=== PATIENT | male | born 1970 | race Caucasian/White ===

== ENCOUNTER 2021-05-29 13:04 | Emergency (ER) | payer BC ==
[2021-05-29] MEDS ORDERED: Sodium Chloride 0.9% 10 ML Syringe FLUSH PRN ×2 (13:53→14:22)
[2021-05-29] MEDS ORDERED: Iopamidol 755 Mg/ML 100 ML Bottle IVPUSH ONE (14:22)
[2021-05-29] MEDS ORDERED: Diatrizoate Meglumine/Diatrizoate Sodium 37% 120 ML Bottle PO ONE (14:27)
[2021-05-29] MEDS ORDERED: Sodium Chloride 0.9% 100 ML IV SCH (14:30)
== END 2021-05-29 16:20 | disposition home or self-care (01) ==
LOC: JD.ED 13:04
DX: R07.9 Chest pain, unspecified (principal); J69.0 Pneumonitis due to inhalation of food and vomit; F17.210 Nicotine dependence, cigarettes, uncomplicated; Z79.899 Other long term (current) drug therapy; Z88.8 Allergy status to other drugs, medicaments and biological substances
CPT/HCPCS: 36415; 71275; 80053; 84484; 85025; 93005; 99285; J3490; Q9963; Q9967; 93010; 99284